=== PATIENT | female | born 1940 | race Caucasian/White ===

== ENCOUNTER 2023-05-22 14:24 | Emergency (ER) | payer MEDICARE, BC ==
[2023-05-22] MEDS ORDERED: Sodium Chloride 0.9% 10 ML Syringe FLUSH PRN (14:33)
[2023-05-22 14:39] LABS: BASOPHILS PERCENT AUTO 0.3 % (0.0-1.0); EOSINOPHILS PERCENT AUTO 0.8 % (1.0-3.0); HEMATOCRIT 34.2 % (37.0-47.0); HEMOGLOBIN 11.1 g/dL (12.0-16.0); LYMPHOCYTES PERCENT AUTO 39.3 % (20.5-50.1); MEAN CORPUSCULAR HEMOGLOBIN 30.2 pg (27.0-34.0); MEAN CORPUSCULAR HGB CONC 32.5 g/dL (33.0-35.0); MEAN CORPUSCULAR VOLUME 93.2 fL (80-100); MONOCYTES PERCENT AUTO 8.7 % (2-8); NEUTROPHILS PERCENT AUTO 50.9 % (42.2-75.2); PLATELET COUNT,PLT 253 10^3/uL (150-450); RED BLOOD CELL COUNT 3.67 10^6/uL (4.2-5.4); WHITE BLOOD CELL COUNT,WBC 6.5 10^3/uL (5.0-10.0)
[2023-05-22 15:05] LABS: A/G RATIO 1.1; ALBUMIN 3.6 g/dL (3.4-5.0); ANION GAP 13.8 mEq/L (7-13); BILIRUBIN TOTAL 0.4 mg/dL (0.2-1.0); BUN/CREATININE RATIO 17.4 (No establ ref range); CALCIUM 9.4 mg/dL (8.5-10.1); CREATININE 2.36 mg/dL (0.55-1.02); EST CRCL DRUG DOSING (CG) 18.49 mL/min; MAGNESIUM 1.9 mg/dL (1.8-2.4); POTASSIUM,K 3.8 mmol/L (3.5-5.1); PROTEIN TOTAL,TP 6.9 g/dL (6.4-8.2); TSH ULTRASENSITIVE 2.32 uIU/mL (0.36-3.74)
[2023-05-22] MEDS ORDERED: Sodium Chloride 0.9% 1,000 ML IV ONE (15:16)
[2023-05-22 15:29] LABS: INR 2.1 (0.9-1.2); PROTHROMBIN TIME 21.2 SEC (9.0-12.0)
== END 2023-05-22 16:12 | disposition home or self-care (01) ==
LOC: DL.ED 14:24
DX: I48.0 Paroxysmal atrial fibrillation (principal); E86.0 Dehydration; D64.9 Anemia, unspecified; Z88.2 Allergy status to sulfonamides; Z88.8 Allergy status to other drugs, medicaments and biological substances
CPT/HCPCS: 36415; 71045; 80053; 83735; 83880; 84443; 84484; 85025; 85610; 93005; 93010; 99284; 99285; J7030; J3490